=== PATIENT | male | born 1990 | race African-American/Black ===

== ENCOUNTER 2022-01-18 14:13 | Emergency (ER) | payer SELFPAY ==
[~2022-01-18] VITALS: Ht 180.3 cm; Wt 81.6 kg
[2022-01-18] MEDS ORDERED: IV NS 0.9% 1,000 ML IV ONE (14:30)
[2022-01-18] MEDS ORDERED: ONDANSETRON HCL/PF 4 MG/2 ML VIAL IV ONE ×2 (14:30→16:00)
[2022-01-18] MEDS ORDERED: ONDANSETRON HCL/PF 4 MG/2 ML VIAL ONE ×2 (14:43→15:59)
--- NOTE | 2022-01-18 15:06 | NUR ---
TO ER BED 11. NAUSEA, VOMITING, DIARRHEA, GENERALIZED CRAMPING X 2 DAYS. PAIN 5/10 ON PAIN SCALE. VITALS ARE WITHIN NORMAL LIMITS. AWAITING MD ALMEIDA.
--- NOTE | 2022-01-18 15:10 | NUR ---
DR MENDOZA AT BEDSIDE FOR EVAL.
[2022-01-18] MEDS ORDERED: ONDA4TAB5 PO (15:13)
--- NOTE | 2022-01-18 16:12 | NUR ---
PT MEDICATED W ZOFRAN 4MG PER GURPREET MENDOZA VERBAL ORDER PRIOR TO DISCHARGED. IVSL D/C'D. DISCHARGE HOME WITH [facility] IN STABLE CONDITION.
[2022-01-18 16:14] VITALS: BP 125/80
== END 2022-01-18 16:15 | disposition home or self-care (01) ==
LOC: ER 14:19
DX: R11.2 Nausea with vomiting, unspecified (principal); R19.7 Diarrhea, unspecified; R10.9 Unspecified abdominal pain; Z88.6 Allergy status to analgesic agent
CPT/HCPCS: 99284; 96374; 96361; 96376; J2405 ×2; J7030